=== PATIENT | male | born 1985 | race Caucasian/White ===

== ENCOUNTER 2018-04-06 18:46 | Emergency (ER) | payer MEDICARE, MEDICAID, SELFPAY ==
[2018-04-06 18:47] VITALS: BP 158/89; PULSE 97; RESP 16; TEMP 36.5; O2SAT 94; O2SAT 95; BMI 39.1
--- NOTE | 2018-04-06 19:30 | CT_ITS ---
STUDY: CT BRAIN WITHOUT CONTRAST REASON FOR EXAM: Male, 32 years old. Seizure RADIATION DOSAGE (If Supplied By Facility): CTDIvol = ( 44.99 ) mGy, DLP = ( 846.73 ) mGycm TECHNIQUE: Transaxial CT imaging of the brain was performed without administration of intravenous contrast material. Individualized dose optimization techniques were used for this CT. COMPARISON: None. FINDINGS: Large subcutaneous hematoma left occipital scalp. Normal calvarium. Normal size ventricles and extra-axial spaces for the patient's age. Normal white matter tracts of the cerebral hemispheres. Normal basal ganglia and thalami. Normal brainstem. Normal cerebellum. There is no intracranial hemorrhage. There are no findings of an acute ischemic infarction. Normal visualized paranasal sinuses. IMPRESSION: Occipital scalp hematoma otherwise Normal unenhanced CT scan of the brain. Electronically Signed: Jose Correa MD at 20:10 EDT , Service support , CT/Brain/Head without Contrast
--- NOTE | 2018-04-06 19:32 | ED.VISSUMM ---
- ER Visit Summary Date of Service: 04/06/18 Chief Complaint: Seizure History of Present Illness: The patient is a 32 M with a history of epilepsy. He has been compliant with Depakote, Lamictal, and Klonopin. [place] and had a tonic-clonic seizure. This was witnessed by bystanders. He has a history of these. It has been a few years since his last one, but he does have them occasionally in his sleep. He follows with a neurologist at the [facility]. He reports pain and swelling to the back of his head but denies any other Physical Examination: Afebrile and vital signs unremarkable. Patient has a large occipital hematoma. Otherwise head and neck atraumatic and nontender. Heart regular. Lungs clear. No focal or lateralizing neurologic abnormalities grossly. Test Results: CT head pending. Emergency Department Course and Treatment: Patient treated with Tylenol while awaiting results. CT unremarkable except for the hematoma. Nothing abnormal intracranially. Patient will be discharged. Continue seizure medications and precautions. Follow-up with neurology. Call tomorrow morning. Return for any new or worsening issues. Treatment Plan: As above Disposition: Discharged Impression: 1. Seizure 2. Scalp hematoma This note was generated with [employer] dictation software. It may contain incorrect words, spelling, and punctuation that were not noted in review of the chart prior to signing ED Disposition - Plan for ED Patient: Chief Complaint: Seizure Referrals: Duc Roberts III, MD [Primary Care Provider] -
[2018-04-06] MEDS: Acetaminophen 500 MG Tablet 1000 MG PO (19:41)
--- NOTE | 2018-04-06 20:44 | ED.DEP ---
ED Disposition - Plan for ED Patient: Chief Complaint: Seizure Instructions: ED Seizure Recurrent Referrals: Duc Roberts III, MD [Primary Care Provider] -
[2018-04-06 21:02] VITALS: RESP 16
== END 2018-04-06 21:03 | disposition home or self-care (01) ==
PROVIDERS: Emergency Provider Emergency Medicine; Family Provider Family Medicine; PCP Family Medicine
DX: G40.409 Other generalized epilepsy and epileptic syndromes, not intractable, without status epilepticus (principal); S00.03XA Contusion of scalp, initial encounter; W19.XXXA Unspecified fall, initial encounter; Y93.9 Activity, unspecified; Y92.9 Unspecified place or not applicable; Y99.9 Unspecified external cause status; F41.9 Anxiety disorder, unspecified; Z79.899 Other long term (current) drug therapy
CPT/HCPCS: 70450; 99283; A4216

== ENCOUNTER 2021-09-05 20:09 | Emergency (ER) | payer MEDICARE, MEDICAID, SELFPAY ==
[2021-09-05 20:11] VITALS: BP 133/87; PULSE 97; RESP 16; TEMP 36.4; O2SAT 95; BMI 42.0
--- NOTE | 2021-09-05 20:45 | ED.RN ---
pt mother is with patient. mom reports pt is at baseline. pt agrees and states my mom is there and takes care of me. mom states we know what this is about and how to handle it. its turning out like he may have had seizure or anxetly attack and is out of which ever it was. left without being seen
== END 2021-09-05 20:45 | disposition left against medical advice (07) ==
LOC: ED 21:01
DX: R41.0 Disorientation, unspecified (principal); F41.9 Anxiety disorder, unspecified; Z53.21 Procedure and treatment not carried out due to patient leaving prior to being seen by health care provider

== ENCOUNTER 2022-04-04 21:26 | Emergency (ER) | payer MEDICARE, MEDICAID, SELFPAY ==
[2022-04-04 21:28] VITALS: BP 114/66; PULSE 96; RESP 16; TEMP 36.7; O2SAT 95; BMI 42.6
--- NOTE | 2022-04-04 21:57 | CT_ITS ---
STUDY: CT HEAD STROKE PROTOCOL W/O CONTRAST INJECTION REASON FOR EXAM: Male, 36 years old. head injury RADIATION DOSAGE (If Supplied By Facility): CTDIvol = ( 44.99 ) mGy, DLP = ( 863.60 ) mGycm TECHNIQUE: Transaxial CT imaging of the brain was performed without administration of intravenous contrast material. Individualized dose optimization techniques were used for this CT. COMPARISON: CT brain 04/06/2018 FINDINGS: BRAIN: Normal chatterjee/white matter differentiation. Peripheral cortical calcifications in the right parietal region, similar compared to the prior. VENTRICLES: No hydrocephalus. EXTRA-AXIAL SPACES: No hemorrhages, fluid collections, or masses. CALVARIUM/SKULL BASE: Normal. FACE/SINUSES: Visualized portions normal. SOFT TISSUES: Left lateral high scalp soft tissue swelling and laceration. OTHER: None. CT/Brain/Head without Contrast IMPRESSION: No intracranial hemorrhage or depressed calvarial fracture. Electronically Signed: Emanuel Tran MD at 23:04 EDT ,
--- NOTE | 2022-04-04 21:57 | CT_ITS ---
STUDY: CT CERVICAL SPINE WITHOUT CONTRAST REASON FOR EXAM: Male, 36 years old. polytrauma RADIATION DOSAGE (If Supplied By Facility): CTDIvol = ( 30.56 ) mGy, DLP = ( 658.20 ) mGycm TECHNIQUE: High resolution transaxial imaging was performed without contrast material. Sagittal and coronal images were reconstructed. Individualized dose optimization techniques were used for this CT. COMPARISON: None FINDINGS: ALIGNMENT: Nonspecific straightening of the normal cervical lordosis.. VERTEBRAL BODIES: No fracture or acute abnormality. DISC SPACES: Normal. POSTERIOR ELEMENTS: Normal. SPINAL CANAL: Normal. PARASPINAL SOFT TISSUES: Normal. LUNG APICES: Visualized portions normal. OTHER: Prominent cervical lymph nodes. CT/Spine Cervical without Contras IMPRESSION: No acute fracture or subluxation. Nonspecific straightening of the normal cervical lordosis. Electronically Signed: Emanuel Tran MD at 23:08 EDT ,
--- NOTE | 2022-04-04 21:57 | CT_ITS ---
STUDY: CT CHEST, ABDOMEN T PELVIS WITH CONTRAST REASON FOR EXAM: Male, 36 years old. fall -- left abd injury RADIATION DOSAGE (If Supplied By Facility): CTDIvol = ( 36.17 ) mGy, DLP = ( 3564.32 ) mGycm TECHNIQUE: Transaxial imaging was performed following intravenous administration of IV 100mL Isovue-370. Individualized dose optimization techniques were used for this CT. COMPARISON: CT abdomen and pelvis 09/21/2012 FINDINGS: CHEST: LUNGS: Bilateral mosaic attenuation. PULMONARY VESSELS: Normal. PLEURA: Normal MEDIASTINUM: Normal. ABDOMEN/PELVIS: LIVER: Normal. GALLBLADDER/BILE DUCTS: Normal. PANCREAS: Normal. SPLEEN: Normal. ADRENAL GLANDS: Normal. KIDNEYS/URETERS/BLADDER: Normal. RETROPERITONEUM/AORTA: Normal. BOWEL/MESENTERY: No bowel dilatation or bowel wall thickening. Prominent mesenteric lymph nodes.. APPENDIX: Identified and normal. PERITONEUM: Normal. REPRODUCTIVE ORGANS: Normal. BONES/SOFT TISSUES: Orthopedic fixation hardware in the proximal left humerus and left glenoid. OTHER: None. CONCLUSION: Bilateral mosaic attenuation, likely due to expiratory phase or small airways disease. No acute intra-abdominal process. Electronically Signed: Emanuel Tran MD at 23:17 EDT , CT/CT Chest, Abd, Pel w/Contrast IMPRESSION: undefined
--- NOTE | 2022-04-04 22:12 | EDS_ITS ---
HPI History of Present Illness Chief Complaint: Seizure Informant: patient and parent Narrative Narrative: If hePatient brought in by EMS from the fair for seizure while in the stands. Patient history of grand mal and partial seizures. He is on Onfi, Depakote, L amictal. He does not miss any doses per parents. Recently was placed on clonazepam for anxiety. He denies any recent cough, urinary symptoms. No recent vomiting or diarrhea. Per father he has seizures more when he sleeps this is his first seizure while he was awake. Reported large scalp laceration from the fall. He does not take any blood thinners per mother tetanus was more than 5 years ago. Prior similar symptoms: Yes [facility] Medical History Seizures Home Medications clobazam 10 mg tablet (Onfi) 10 mg PO BID 04/28/16 [History Last Taken 04/30/16 10:00] divalproex 500 mg tablet,delayed release (Depakote) 750 mg PO BID 09/29/16 [History Last Taken Unknown] lamotrigine 100 mg tablet,extended release 24 hr (Lamictal XR) 100 mg PO BID 09/29/16 [History Last Taken Unknown] lamotrigine 50 mg tablet,extended release 24 hr (Lamictal XR) 50 mg PO BID 09/29/16 [History Last Taken Unknown] clonazepam 0.5 mg tablet 0.5 mg PO BID 04/04/22 [History Last Taken Unknown] desvenlafaxine 100 mg tablet,extended release 24 hr 100 mg PO DAILY 04/04/22 [History Last Taken Unknown] Allergy/AdvReac Type Severity Reaction Status Date / Time No Known Allergies Allergy Verified 04/04/22 21:27 Social History Smoking Status: Never smoker ROS ROS ED Constitutional Constitutional ED: Denies chills, fever(s) or sweats Eyes Eyes: Denies change in vision ENT ENT ED: Denies dysphagia or sore throat Cardiovascular Cardiovascular: Denies chest pain, leg edema, palpitations or racing heartbeat Respiratory/Chest Respiratory/Chest: Denies cough, dyspnea or dyspnea on exertion Gastrointestinal Gastrointestinal: Denies abdominal pain, diarrhea, nausea or vomiting Genitourinary Genitourinary ED: Denies dysuria, hematuria or urinary frequency Musculoskeletal Musculoskeletal: Denies back pain, extremity pain or neck pain Integumentary Denies rash or wounds Neurologic Neurologic: Reports headache(s) and other Details: Seizure ; Denies paresthesias or weakness EXAM Physical Exam Const Vital Signs: 04/04/22 21:28 04/05/22 00:37 04/05/22 00:37 Temperature 98.1 F Temperature Source Oral Pulse Rate 96 78 78 Respiratory Rate 16 16 16 Blood Pressure 114/66 120/70 120/70 Blood Pressure Mean 82 86 Pulse Ox 95 97 97 Oxygen Delivery Method Room Air Room Air Positive well nourished and well developed Constitutional Narrative: GCS 15. General Appearance ED: well developed and NAD HEENT Reports TM's clear and moist mucous membranes HEENT Narrative: Scalp lack left parietal 4 cm no active bleeding. Hematoma noted on the crown of head with dried blood. No hemotympanums. normocephalic Tympanic Membrane ED: Yes TM's clear Eyes PERRL, EOMs intact bilaterally and conjunctivae normal General Eye ED: Yes normal appearance of both eyes Neck no lymphadenopathy and supple Neck Narrative: C-collar. No midline tenderness or step-offs. General: Negative for tenderness Chest Wall inspection of chest normal and palpation of chest normal Chest Narrative: No chest wall tenderness. Chest: Negative for tenderness Resp normal respiratory effort and normal air movement Effort and Inspection: symmetric chest movement; Negative for respiratory distress Cardio regular rate, regular rhythm and no murmurs Peripheral Pulses: pulses 2+ throughout GI normal to inspection, nondistended, normoactive bowel sounds GI Narrative: Tender palpation left upper abdomen, no ecchymosis. Skin intact. Palpation: Negative for guarding or rebound tenderness present Back/Spine no CVA tenderness and no thoracic nor lumbar tenderness Back/Spine Narrative: No midline thoracic or lumbar tenderness or step-offs. No ecchymosis of the back. Extremity normal to inspection Extremity Narrative: Full range of motion upper lower extremities without pain or deformities. Pulses intact x4. General Extremety ED: Negative for edema or tenderness General Extremity: Negative for edema Neuro oriented x3, CN's II-XII intact bilaterally and no sensory deficits noted Sensorium / Orientation: awake and alert Skin no rashes or lesions noted and no wounds MDM MDM MDM Narrative Medical decision making narrative: Patient presenting fall after seizure scalp laceration. No focal deficits. Headache along with lower abdominal pain. Due to mechanism with injuries trauma scans head neck chest, pelvis all obtained noting no acute process. Labs slightly elevated lipase with no signs of injury on CT. Depakote levels were therapeutic. He was allowed to take his nighttime dose of his seizure medicines in the ED. Scalp laceration was repaired. Concussion precautions discussed. Total 4 brittni were placed. He will follow-up as an outpatient with his PCP for staple removal in 10 days. Father requests more local neurologist as he follows [facility]. He is given neurology locally to follow-up with. All questions were answered. Procedure note: Verbal consent. Normal sterile conditions. 1% lidocaine 4 cc used for local analgesia of the scalp wound. Copiously flushed with saline and peroxide to clean dry blood. Total of 4 brittni placed with good approximation. Patient tolerated procedure well. Lab Data Attestation: I reviewed the patient's lab results. Labs: Laboratory Results - last 24 hr 04/04/22 04/04/22 22:05 22:05 Sodium 143 Potassium 4.1 Chloride 105 Carbon Dioxide 30.0 Anion Gap 8 BUN 12 Creatinine 0.88 Estim Creat Clear Calc 117.52 Est GFR (MDRD) Af Amer 125 Est GFR (MDRD) Non-Af 103 BUN/Creatinine Ratio 13.7 Glucose 106 Calcium 9.5 Total Bilirubin 0.30 Direct Bilirubin 0.08 AST 45 H ALT 103 H Alkaline Phosphatase 55 Total Protein 7.6 Albumin 3.6 Globulin 4.0 Albumin/Globulin Ratio 0.9 Lipase 503 H Valproic Acid 73 Radiography Diagnostic Testing: Clinical Impression(s) from Imaging Studies Brain CT 04/04/22 21:57 IMPRESSION: No intracranial hemorrhage or depressed calvarial fracture. Electronically Signed: Emanuel Tran MD at 23:04 EDT , Cervical Spine CT 04/04/22 21:57 IMPRESSION: No acute fracture or subluxation. Nonspecific straightening of the normal cervical lordosis. Electronically Signed: Emanuel Tran MD at 23:08 EDT , Chest/Abdomen/Pelvis CT 04/04/22 21:57 IMPRESSION: undefined Discharge Plan Triage Chief Complaint: Seizure ED Provider: Hung Kline Dx/Rx/DC Orders Clinical Impression: Seizure disorder, Breakthrough seizure, Laceration of scalp, Closed head injury, Abdominal contusion, Tetanus toxoid vaccination administered at current visit, Concussion Instructions: Concussion Dc, ED Laceration Scalp Stitches or Brittni, ED Seizure, Recurrent (Adult) Prescriptions: No Action clobazam [Onfi] 10 MG tablet 10 mg PO BID Label Comments: SEIZURES divalproex [Depakote] 500 MG tablet,delayed release (DR/EC) 750 mg PO BID Label Comments: SEIZURES lamotrigine [Lamictal XR] 50 MG tablet extended release 24hr 50 mg PO BID Label Comments: SEIZURES lamotrigine [Lamictal XR] 100 MG tablet extended release 24hr 100 mg PO BID Label Comments: SEIZURES clonazepam 0.5 mg Tablet 0.5 mg PO BID desvenlafaxine 100 mg Tablet Extended Release 24 Hr 100 mg PO DAILY Primary Care Provider: Abelino Amaral Referrals: Abelino Amaral MD [Primary Care Provider] - 10 Day for suture removal Jesus Morrison MD [Non-Staff -Ordering Privileges] - 1-2 Weeks NOT,DEFINED [Non-Staff] - Activity Restrictions/Additional Instructions: 4 brittni placed on the scalp. Wound care as discussed. CT scan head neck chest abdomen pelvis are negative. Continue your seizure medications. [place] removed in 10 days. Disposition Disposition: Home, Self Care Discharge Date/Time: 04/05/22 00:39
[2022-04-04 22:29] LABS: Valproic Acid (Depakene) Level 73 ug/mL (50-100)
[2022-04-04 22:30] LABS: ALB/GLOB Ratio 0.9 RATIO (0.9-2.4); AST(SGOT) 45 U/L (15-37); Alanine Aminotransfer ALT/SGPT 103 U/L (16-61); Albumin, Serum 3.6 g/dL (3.2-5.0); Alkaline Phosphatase 55 U/L (45-117); Anion Gap 8 (5-15); BUN 12 mg/dL (7-18); BUN/Creat Ratio 13.7 RATIO (10-20); Bilirubin, Direct 0.08 mg/dL (0.00-0.30); Calcium,Total 9.5 mg/dL (8.5-10.1); Chloride 105 mmol/L (98-107); Creatinine, Serum 0.88 mg/dL (0.70-1.30); EST Glomerular Filtration Rate 103 mL/min (>60); Est Glom Filt Rate - Afr Amer 125 mL/min (>60); Estimated Creatinine Clearance 117.52 ml/min; Glucose 106 mg/dL (74-106); Lipase 503 U/L (73-393); Potassium 4.1 mmol/L (3.5-5.1); Protein, Total 7.6 g/dL (6.4-8.2); Sodium Level 143 mmol/L (136-145)
[2022-04-05] MEDS: Diphth,Pertuss(Acell),Tet Vac 0.5 ML Vial IM (00:12)
[2022-04-05 00:37] VITALS: BP 120/70; PULSE 78; RESP 16; O2SAT 97
== END 2022-04-05 00:39 | disposition home or self-care (01) ==
PROVIDERS: Emergency Provider Emergency Medicine; PCP Family Medicine; Visit Provider Emergency Medicine
DX: G40.901 Epilepsy, unspecified, not intractable, with status epilepticus (principal); S06.0X0A Concussion without loss of consciousness, initial encounter; S01.01XA Laceration without foreign body of scalp, initial encounter; S30.1XXA Contusion of abdominal wall, initial encounter; F41.9 Anxiety disorder, unspecified; W17.89XA Other fall from one level to another, initial encounter; Z23 Encounter for immunization
CPT/HCPCS: 12002; 70450; 71260; 72125; 74177; 80048; 80053; 80076; 80164; 83690; 90471; 90715; 99285; Q9967; A4216

== ENCOUNTER → 2025-06-06 | Outpatient (CLI) | payer MEDICAID, SELFPAY ==
--- NOTE | 2025-06-06 15:26 | NEURO ---
NCS and/or EMG Patient Report Ordering Doctor: Harjinder Hanna DATE OF SERVICE: 06/06/25 Darnell presents with complaints of numbness and tingling in the right hand. Electrodiagnostic findings: Right median motor nerve demonstrates prolonged latency with normal amplitude and conduction velocity. Right ulnar motor response within normal limits. Prolonged right median F–wave. Prolonged right median sensory latency at the wrist with reduced conduction velocity. Needle EMG testing was performed in the right upper limb. All muscles tested showed no evidence of denervation with normal motor unit action potentials. Electrodiagnostic impression: This is an abnormal study. 1. Electrodiagnostic findings suggestive of right sided median mononeuropathy. This is consistent with a moderate right carpal tunnel syndrome. Multi Select Codes Neurology Neurology Interp Codes: 86645-81 Musc test done w/n test comp (interp) and 37403-66 Nrv cndj tst 5-6 studies (interp)
== END | disposition home or self-care (01) ==
PROVIDERS: PCP Family Medicine; Referring Provider Orthopaedic Surgery; Visit Provider Orthopaedic Surgery
DX: R20.0 Anesthesia of skin (principal); R20.2 Paresthesia of skin
CPT/HCPCS: 95886; 95909